=== PATIENT | female | born 1985 | race African-American/Black ===

== ENCOUNTER 2020-05-28 14:25 | Emergency (ER) | payer MEDICAID, OTHER ==
[2020-05-28] MEDS ORDERED: Fluconazole 150 MG Tab PO ONE (14:49)
--- NOTE | 2020-05-28 15:02 | EDM.PDOC ---
ED HPI GENERAL MEDICAL PROBLEM - General Chief Complaint: Skin Complaint Stated Complaint: PAIN FIBROIDS Time Seen by Provider: 05/28/20 14:36 - History of Present Illness INITIAL COMMENTS - FREE TEXT/NARRATIVE: CHIEF COMPLAINT(S): Rash HISTORY OF PRESENT ILLNESS: This is a 34-year-old female with a past medical history of ablation for fibroids approximately 2 months ago who presents to the emergency department with a chief complaint of rash. Patient states that after her ablation for fibroids 2 months ago she wore a pad for approximately 1 month given the concern for spotting. She states that she took it off approximately a month ago and then she experienced her. Approximately 2 weeks ago and has had a pad on during that time. She states that she noticed today that after sexual intercourse the skin around her vagina and during sex she experienced some pain and noticed a rash. She describes the rash as dry and the pain as a burning. She rates the pain as 4 out of 10. She denies any vaginal bleeding or vaginal discharge. She denies any radiation of this pain. She states that she has never had this before. She denies any aggravating or relieving symptoms. REVIEW OF SYSTEMS: Constitutional: Denies fever, chills. Eyes: Denies eye pain Ears, Nose, Mouth, & Throat: Denies earache Cardiovascular: Denies chest pain Respiratory: Denies shortness of breath Gastrointestinal: Denies Nausea, vomiting, diarrhea, hematochezia. Genitourinary: Positive for vaginal itching. Denies vaginal bleeding or vaginal discharge Skin: Positive for rash around vagina Neurological: Denies blurred vision Psychiatric: Denies depression PAST MEDICAL HISTORY: As per history of present illness and as reviewed below otherwise noncontributory. SURGICAL HISTORY: As per history of present illness and as reviewed below otherwise noncontributory. LMP: 2 weeks ago. SOCIAL HISTORY: As per history of present illness and as reviewed below otherwise noncontributory. FAMILY HISTORY: As per history of present illness and as reviewed below otherwise noncontributory. EXAMINATION OF ORGAN SYSTEMS/BODY AREAS: Constitutional: Heart rate was 87, blood pressure 116/69. Respiratory rate 18 with an oxygen saturation of 97% on room air. Temperature 36.6 General: [Overall well-appearing woman who is in no acute distress Psychiatric: Appropriate mood and affect. Eyes: No scleral icterus or conjunctival erythema ENMT: Moist mucous membranes. No pharyngeal erythema Cardiovascular: Regular, rate, and rhythm. No gallops, murmurs, or rubs. Respiratory: Lungs clear to auscultation bilaterally. No wheezes, rales, or rhonchi. Gastrointestinal: Soft, non-tender, non-distended. Normoactive bowel sounds Genitourinary: No suprapubic tenderness pelvic examination was performed with RN risk control product liability director in presence. The patient has normal female external genitalia without any lesions. There was no obvious rash to the external genitalia however there was obvious Conchita infection. Musculoskeletal: Normal range of motion. Skin: No lesions or abrasions. Neurological: Alert, GCS 15 MEDICAL DECISION MAKING AND COURSE IN THE ED WITH INTERPRETATION/REVIEW OF DIAGNOSTIC STUDIES: This is a 34-year-old woman with a past medical history of fibroid uterus status post ablation who comes to the emergency department with vaginal itching, irritation, and burning with an examination revealing yeast vaginitis. At this time the patient is stable and I do not believe any labs or imaging are indicated. I discussed with the patient that I be providing her with fluconazole here and that to be providing her with an additional tablet at home to take if the symptoms do not improve within the next 3 days. Also discussed with her that she can use [id number] Monistat or other creams to help with the itching. She is to return to the emergency department for any new or worsening symptoms. She was amenable to discharge at this time and had no further questions. DISPOSITION: The patient was discharged home in stable condition. The patient will follow up with PCP as needed CONDITION: Fair PROCEDURES: None FINAL IMPRESSION(S)/DIAGNOSES: 1. Acute yeast vaginitis Siddhartha Zuluaga M.D. - Related Data Allergies Allergy/AdvReac Type Severity Reaction Status Date / Time No Known Allergies Allergy Verified 05/28/20 14:33 Home Meds: Home Meds Fluconazole [Diflucan] 150 mg PO ONETIME #1 tab 05/28/20 [Rx] Past Medical History Other HEENT History: seasonal allergies [employer]ER [employer] RET[employer]IST History: Reports: Endometrial Ablation, Other CON[employer]ER [employer]IST History: - Infectious Disease History Infectious Disease History: Reports: Chicken Pox Social & Family History - Family History Family Medical History: No Pertinent Family History - Caffeine Use Caffeine Use: Reports: Coffee - Recreational Drug Use Recreational Drug Use: No ED ROS GENERAL - Review of Systems Review Of Systems: See Below ED EXAM, SKIN/RASH Exam: See Below Course - Vital Signs Last Recorded V/S: Last Vital Signs Temp 36.4 C 05/28/20 15:15 Pulse 81 05/28/20 15:15 Resp 16 05/28/20 15:15 BP 120/84 05/28/20 15:15 Pulse Ox 98 05/28/20 15:15 - Orders/Labs/Meds Meds: Medications Discontinued Medications Generic Name Dose Route Start Last Admin Trade Name Kings PRN Reason Stop Dose Admin Fluconazole 150 mg 05/28/20 14:49 05/28/20 14:58 Diflucan PO 05/28/20 14:50 150 mg ONETIME ONE Administration Departure - Departure Time of Disposition: 15:01 Disposition: Home, Self-Care 01 Condition: Fair Clinical Impression: Yeast infection involving the vagina and surrounding area - Discharge Information *PRESCRIPTION DRUG MONITORING PROGRAM REVIEWED*: No *COPY OF PRESCRIPTION DRUG MONITORING REPORT IN PATIENT LIZBET: No Prescriptions: Fluconazole [Diflucan] 150 mg PO ONETIME #1 tab Instructions: Vaginal Yeast Infection, Adult Referrals: PCP,None [Ordering Only Provider] - Forms: ED Department Discharge Additional Instructions: The patient is informed of any results of their evaluation and diagnostic workup and all questions are answered. They are given discharge instructions and return precautions. The patient is stable for discharge. The patient states they understand and agree with the plan and that they will return if their symptoms get worse or if they have any new concerns. The following information is given to patients seen in the emergency department who are being discharged to home. This information is to outline your options for follow-up care. We provide all patients seen in our emergency department with a follow-up referral. The need for follow-up, as well as the timing and circumstances, are variable depending upon the specifics of your emergency department visit. If you don't have a primary care physician on staff, we will provide you with a referral. We always advise you to contact your personal physician following an emergency department visit to inform them of the circumstance of the visit and for follow-up with them and/or the need for any referrals to a consulting specialist. The emergency department will also refer you to a specialist when appropriate. This referral assures that you have the opportunity for follow-up care with a specialist. All of these measure are taken in an effort to provide you with optimal care, which includes your follow-up. Under all circumstances we always encourage you to contact your private physician who remains a resource for coordinating your care. When calling for follow-up care, please make the office aware that this follow-up is from your recent emergency room visit. If for any reason you are refused follow-up, please contact the [facility] Emergency Department at and asked to speak to the emergency department charge nurse. Your evaluated today on an emergent basis. I do believe your symptoms are secondary to yeast vaginitis. We did provide you with fluconazole here in the emergency department. If you have continued symptoms on 06/01/2020 please take an additional tablet of fluconazole which was sent to the pharmacy. [id number] you can obtain Monistat to help with the itching. Please return to the emergency department for any new or worsening symptoms. Please follow-up with gynecology as needed. [facility] [address] [place] [address] [facility] [address] [place] [id number] [facility] [address] [place] [id number] [facility] [address] [place] [id number] Sepsis Event Note (ED) - Evaluation Sepsis Screening Result: No Definite Risk - Focused Exam Vital Signs: Vital Signs Temp Pulse Resp BP Pulse Ox 05/28/20 15:15 36.4 C 81 16 120/84 98 05/28/20 14:38 36.6 C 87 18 116/69 97
== END 2020-05-28 15:16 | disposition home or self-care (01) ==
LOC: EDBD 14:25 → MW.ED 14:25
DX: B37.3 Candidiasis of vulva and vagina (principal)
CPT/HCPCS: 99283; A9270

== ENCOUNTER 2020-08-22 12:45 | Emergency (ER) | payer SELFPAY ==
[2020-08-22] MEDS ORDERED: Sodium Chloride 0.9% 10 ML Syringe FLUSH PRN (13:34)
[2020-08-22] MEDS ORDERED: Sodium Chloride 0.9% 2.5 ML Syringe FLUSH PRN (13:34)
--- NOTE | 2020-08-22 13:51 | EDM.PDOC ---
ED HPI GENERAL MEDICAL PROBLEM - General Chief Complaint: Respiratory Problem Stated Complaint: SOB Time Seen by Provider: 08/22/20 12:46 "lungs" Pain Score (Numeric/FACES): 8 - Related Data Allergies Allergy/AdvReac Type Severity Reaction Status Date / Time No Known Allergies Allergy Verified 08/22/20 13:09 Home Meds: Home Meds Albuterol Sulfate [Proair Hfa] 8.5 gm IH Q8HR PRN #1 hfa.[email or web address] 08/22/20 [Rx] Albuterol [Proventil Neb Soln] 1 ampule NEB Q6H PRN #1 box 08/22/20 [Rx] predniSONE [Prednisone] 20 mg PO DAILY 5 Days #5 tablet 08/22/20 [Rx] Past Medical History - Past Health History Medical/Surgical History: Denies Medical/Surgical History Other HEENT History: seasonal allergies CHHA History: Reports: Endometrial Ablation, Other CHHA History: - Infectious Disease History Infectious Disease History: Reports: Chicken Pox Social & Family History - Family History Family Medical History: No Pertinent Family History - Tobacco Use Tobacco Use Status *Q: Never Tobacco User Second Hand Smoke Exposure: No - Caffeine Use Caffeine Use: Reports: Tea - Recreational Drug Use Recreational Drug Use: No Course - Vital Signs Last Recorded V/S: Last Vital Signs Temp 36.8 C 08/22/20 13:07 Pulse 78 08/22/20 15:19 Resp 16 08/22/20 13:07 BP 111/71 08/22/20 15:19 Pulse Ox 95 08/22/20 15:19 - Orders/Labs/Meds Labs: Laboratory Tests 08/22/20 08/22/20 08/22/20 Range/Units 13:47 13:47 13:47 WBC 6.96 (4.0-11.0) K/uL RBC 5.45 (4.30-5.90) M/uL Hgb 15.3 (12.0-16.0) g/dL Hct 45.9 (36.0-46.0) % MCV 84.2 (80.0-98.0) fL MCH 28.1 (27.0-32.0) pg MCHC 33.3 (31.0-37.0) g/dL RDW Std Deviation 38.1 (28.0-62.0) fl RDW Coeff of Hesham 13 (11.0-15.0) % Plt Count 218 (150-400) K/uL MPV 11.80 (7.40-12.00) fL Neut % (Auto) 54.3 (48.0-80.0) % Lymph % (Auto) 29.3 (16.0-40.0) % [place] % (Auto) 5.5 (0.0-15.0) % Eos % (Auto) 10.5 H (0.0-7.0) % Baso % (Auto) 0.4 (0.0-1.5) % Neut # (Auto) 3.8 (1.4-5.7) K/uL Lymph # (Auto) 2.0 (0.6-2.4) K/uL [place] # (Auto) 0.4 (0.0-0.8) K/uL Eos # (Auto) 0.7 (0.0-0.7) K/uL Baso # (Auto) 0.0 (0.0-0.1) K/uL Nucleated RBC % 0.0 /100WBC Nucleated RBCs # 0 K/uL Sodium 138 (136-145) mmol/L Potassium 3.6 (3.5-5.1) mmol/L Chloride 104 (98-107) mmol/L Carbon Dioxide 28.6 (21.0-32.0) mmol/L BUN 10 (7.0-18.0) mg/dL Creatinine 1.1 H (0.6-1.0) mg/dL Est Cr Clr Drug Dosing 57.00 mL/min Estimated GFR (MDRD) > 60.0 ml/min Glucose 75 (74-106) mg/dL Calcium 8.9 (8.5-10.1) mg/dL Total Bilirubin 0.9 (0.2-1.0) mg/dL AST 20 (15-37) IU/L ALT 16 (14-63) IU/L Alkaline Phosphatase 50 (46-116) U/L Troponin I (0.000-0.056) ng/mL B-Natriuretic Peptide 5 (<100) PG/ML Total Protein 7.7 (6.4-8.2) g/dL Albumin 3.6 (3.4-5.0) g/dL Globulin 4.1 H (2.6-4.0) g/dL Albumin/Globulin Ratio 0.9 (0.9-1.6) HCG, Quant < 1.0 mIU/mL 08/22/20 Range/Units 13:47 WBC (4.0-11.0) K/uL RBC (4.30-5.90) M/uL Hgb (12.0-16.0) g/dL Hct (36.0-46.0) % MCV (80.0-98.0) fL MCH (27.0-32.0) pg MCHC (31.0-37.0) g/dL RDW Std Deviation (28.0-62.0) fl RDW Coeff of Hesham (11.0-15.0) % Plt Count (150-400) K/uL MPV (7.40-12.00) fL Neut % (Auto) (48.0-80.0) % Lymph % (Auto) (16.0-40.0) % [place] % (Auto) (0.0-15.0) % Eos % (Auto) (0.0-7.0) % Baso % (Auto) (0.0-1.5) % Neut # (Auto) (1.4-5.7) K/uL Lymph # (Auto) (0.6-2.4) K/uL [place] # (Auto) (0.0-0.8) K/uL Eos # (Auto) (0.0-0.7) K/uL Baso # (Auto) (0.0-0.1) K/uL Nucleated RBC % /100WBC Nucleated RBCs # K/uL Sodium (136-145) mmol/L Potassium (3.5-5.1) mmol/L Chloride (98-107) mmol/L Carbon Dioxide (21.0-32.0) mmol/L BUN (7.0-18.0) mg/dL Creatinine (0.6-1.0) mg/dL Est Cr Clr Drug Dosing mL/min Estimated GFR (MDRD) ml/min Glucose (74-106) mg/dL Calcium (8.5-10.1) mg/dL Total Bilirubin (0.2-1.0) mg/dL AST (15-37) IU/L ALT (14-63) IU/L Alkaline Phosphatase (46-116) U/L Troponin I < 0.050 (0.000-0.056) ng/mL B-Natriuretic Peptide (<100) PG/ML Total Protein (6.4-8.2) g/dL Albumin (3.4-5.0) g/dL Globulin (2.6-4.0) g/dL Albumin/Globulin Ratio (0.9-1.6) HCG, Quant mIU/mL Meds: Medications Discontinued Medications Generic Name Dose Route Start Last Admin Trade Name Freq PRN Reason Stop Dose Admin Methylprednisolone Sodium Succinate 125 mg 08/22/20 14:37 08/22/20 15:01 Methylprednisolone Sodium Succinate 125 Mg/2 Ml Sdv IVPUSH 08/22/20 14:38 125 mg ONETIME ONE Administration Sodium Chloride 10 ml 08/22/20 13:34 08/22/20 15:02 Sodium Chloride 0.9% 10 Ml Syringe FLUSH 10 ml ASDIRECTED PRN Administration Keep Vein Open Sodium Chloride 2.5 ml 08/22/20 13:34 08/22/20 15:02 Sodium Chloride 0.9% 2.5 Ml Syringe FLUSH 2.5 ml ASDIRECTED PRN Administration Keep Vein Open Departure - Departure Disposition: Home, Self-Care 01 Clinical Impression: Cough Dyspnea Qualifiers: Dyspnea type: unspecified Qualified Code(s): R06.00 - Dyspnea, unspecified - Discharge Information Prescriptions: predniSONE [Prednisone] 20 mg PO DAILY 5 Days #5 tablet Albuterol Sulfate [Proair Hfa] 8.5 gm IH Q8HR PRN #1 hfa.aer.ad PRN Reason: Cough Albuterol [Proventil Neb Soln] 1 ampule NEB Q6H PRN #1 box PRN Reason: Wheezing Instructions: Cough, Adult, [id number] Referrals: PCP,None [Primary Care Provider] - Forms: ED Department Discharge Additional Instructions: The following information is given to patients seen in the emergency department who are being discharged to home. This information is to outline your options for follow-up care. We provide all patients seen in our emergency department with a follow-up referral. The need for follow-up, as well as the timing and circumstances, are variable depending upon the specifics of your emergency department visit. If you don't have a primary care physician on staff, we will provide you with a referral. We always advise you to contact your personal physician following an emergency department visit to inform them of the circumstance of the visit and for follow-up with them and/or the need for any referrals to a consulting specialist. The emergency department will also refer you to a specialist when appropriate. This referral assures that you have the opportunity for follow-up care with a specialist. All of these measure are taken in an effort to provide you with optimal care, which includes your follow-up. Under all circumstances we always encourage you to contact your private physician who remains a resource for coordinating your care. When calling for follow-up care, please make the office aware that this follow-up is from your recent emergency room visit. If for any reason you are refused follow-up, please contact the [facility] Emergency Department at and asked to speak to the emergency department charge nurse. [facility] [address] [place] [id number] [facility] [address] [place] [id number] 1. Take your medications as prescribed. 2. You can take Benadryl as needed for symptomatic relief. 3. Establish care and follow-up with a primary care provider as discussed. Return to ED as as needed and as discussed. Sepsis Event Note (ED) - Evaluation Sepsis Screening Result: No Definite Risk
--- NOTE | 2020-08-22 13:52 | PCM.SN.2 ---
- Free Text/Narrative Note: EG normal sinus rhythm heart rate 74 MD 168 [place] [address]RS [address] and T no prior for comparison impression no acute injury
--- NOTE | 2020-08-22 14:24 | CR ---
INDICATION: pain sob TECHNIQUE: Chest 2 views. COMPARISON: None. FINDINGS: Cardiovascular and mediastinum: Heart size and vasculature are normal in caliber and appearance. Mediastinum is within normal limits. Lungs and pleural spaces: Lungs are clear. No sign of infiltrate or mass. No sign of pleural effusion. No pneumothorax. Bones and soft tissues: No significant findings. IMPRESSION: Unremarkable chest. Dictated by: Chalo Mondragon MD @ 08/22/2020 14:24:10 (Electronically Signed)
--- NOTE | 2020-08-22 14:31 | EDM.PDOC ---
ED HPI GENERAL MEDICAL PROBLEM - General Chief Complaint: Respiratory Problem Stated Complaint: SOB Time Seen by Provider: 08/22/20 12:46 Source of Information: Reports: Patient History Limitations: Reports: No Limitations - History of Present Illness INITIAL COMMENTS - FREE TEXT/NARRATIVE: HISTORY AND PHYSICAL: History of present illness: Patient is a 34-year-old female presenting to the ED for shortness of breath x 6 months; worse the past 2 weeks Patient states that she went to a doctor in [place] from where she recently moved, and her doctor told her that she had acute bronchitis and treated her with nebulized albuterol and sent her home with an albuterol inhaler 6 months ago. Patient states she also has been coughing which is worse at night. She states the albuterol helps for a short period of time with her symptoms. Patient states she has a family history of asthma and eczema but she has never had issues with this. Patient denies fever or chills. Denies headache, neck stiff ness, change in vision, syncope, or near syncope. Denies nausea, vomiting, abdominal pain, diarrhea, constipation, or dysuria. Has not noted any blood in urine or stool. Patient has been eating and drinking appropriately. Review of systems: As per history of present illness and below otherwise all systems reviewed and negative. Past medical history: As per history of present illness and as reviewed below otherwise noncontributory. Surgical history: As per history of present illness and as reviewed below otherwise noncontributory. Social history: See social history for further information Family history: As per history of present illness and as reviewed below otherwise noncontributory. Physical exam: General: Patient is alert, oriented, and in no acute distress. Patient sitting comfortably on exam table. Vitals stable and reviewed by me HEENT: Atraumatic, normocephalic, pupils equal and reactive bilaterally, negative for conjunctival pallor or scleral icterus, mucous membranes moist, TMs normal bilaterally, throat clear, neck supple, nontender, trachea midline. No drooling or trismus noted. No meningeal signs. No hot potato voice noted. Lungs: Light end inspiratory and expiratory wheezing heard in the base of the right lung. Light inspiratory and expiratory wheezing heard in the anterior portion of the left lung. Otherwise, clear to auscultation, breath sounds equal bilaterally, chest nontender. Heart: S1S2, regular rate and rhythm without overt murmur Abdomen: Soft, nondistended, nontender. Negative for masses or hepatosplenomegaly. Negative for costovertebral tenderness. Pelvis: Stable nontender. Genitourinary: Deferred. Rectal: Deferred. Skin: Intact, warm, dry. No lesions or rashes noted. Extremities: Atraumatic, negative for cords or calf pain. Neurovascular unremarkable. Neuro: Awake, alert, oriented. Cranial nerves II through XII unremarkable. Cerebellum unremarkable. Motor and sensory unremarkable throughout. Exam nonfocal. Notes: On initial exam, patient is well-appearing, vitally stable, and in no acute distress. She is breathing comfortably without any accessory muscle use. Will obtain routine lab work including two-view chest x-ray, EKG. Upon reevaluation of patient, she remains comfortable and vitally stable in the emergency room. She does have some eosinophilia on lab work and I do suspect her symptoms may possibly reactive airway. Discussed importance for establishing care with a primary care provider. Strict return precautions thoroughly discussed with patient. Discussed importance for follow-up with a primary care provider. Voices understanding and is agreeable to plan of care. Denies any further questions or concerns at this time. Diagnostics: CBC, CMP, beta hCG quant, BNP, CXR 2 view, EKG Therapeutics: Solu-Medrol Prescription: Albuterol inhaler / neb, prednisone Impression: Dyspnea, possible reactive airway disease Cough Plan: 1. Take medications as prescribed. 2. You can take Benadryl as needed for symptomatic relief. 3. Establish care and follow-up with a primary care provider as discussed. Return to ED as as needed and as discussed. Definitive disposition and diagnosis as appropriate pending reevaluation and review of above. "lungs" Pain Score (Numeric/FACES): 8 - Related Data Allergies Allergy/AdvReac Type Severity Reaction Status Date / Time No Known Allergies Allergy Verified 08/22/20 13:09 Home Meds: Home Meds Albuterol Sulfate [Proair Hfa] 8.5 gm IH Q8HR PRN #1 hfa.aer.ad 08/22/20 [Rx] Albuterol [Proventil Neb Soln] 1 ampule NEB Q6H PRN #1 box 08/22/20 [Rx] predniSONE [Prednisone] 20 mg PO DAILY 5 Days #5 tablet 08/22/20 [Rx] Past Medical History - Past Health History Medical/Surgical History: Denies Medical/Surgical History Other HEENT History: seasonal allergies DISTRICT DIRECTOR History: Reports: Endometrial Ablation, Other DISTRICT DIRECTOR History: - Infectious Disease History Infectious Disease History: Reports: Chicken Pox Social & Family History - Family History Family Medical History: No Pertinent Family History - Tobacco Use Tobacco Use Status *Q: Never Tobacco User Second Hand Smoke Exposure: No - Caffeine Use Caffeine Use: Reports: Tea - Recreational Drug Use Recreational Drug Use: No ED ROS GENERAL - Review of Systems Review Of Systems: Comprehensive ROS is negative, except as noted in HPI. ED EXAM, GENERAL - Physical Exam Exam: See Below (see dictation) Course - Vital Signs Last Recorded V/S: Last Vital Signs Temp 98.2 F 08/22/20 13:07 Pulse 78 08/22/20 13:07 Resp 16 08/22/20 13:07 BP 109/68 08/22/20 13:07 Pulse Ox 95 08/22/20 13:07 - Orders/Labs/Meds Orders: Active Orders 24 hr Category Date Time Status EKG Documentation Completion [RC] STAT Care 08/22/20 13:34 Active Sodium Chloride 0.9% [Saline Flush] Med 08/22/20 13:34 Active 10 ml FLUSH ASDIRECTED PRN Sodium Chloride 0.9% [Saline Flush] Med 08/22/20 13:34 Active 2.5 ml FLUSH ASDIRECTED PRN Saline Lock Insert [OM.PC] Stat Oth 08/22/20 13:35 Ordered Labs: Laboratory Tests 08/22/20 08/22/20 08/22/20 Range/Units 13:47 13:47 13:47 WBC 6.96 (4.0-11.0) K/uL RBC 5.45 (4.30-5.90) M/uL Hgb 15.3 (12.0-16.0) g/dL Hct 45.9 (36.0-46.0) % MCV 84.2 (80.0-98.0) fL MCH 28.1 (27.0-32.0) pg MCHC 33.3 (31.0-37.0) g/dL RDW Std Deviation 38.1 (28.0-62.0) fl RDW Coeff of Hesham 13 (11.0-15.0) % Plt Count 218 (150-400) K/uL MPV 11.80 (7.40-12.00) fL Neut % (Auto) 54.3 (48.0-80.0) % Lymph % (Auto) 29.3 (16.0-40.0) % Lamb % (Auto) 5.5 (0.0-15.0) % Eos % (Auto) 10.5 H (0.0-7.0) % Baso % (Auto) 0.4 (0.0-1.5) % Neut # (Auto) 3.8 (1.4-5.7) K/uL Lymph # (Auto) 2.0 (0.6-2.4) K/uL Lamb # (Auto) 0.4 (0.0-0.8) K/uL Eos # (Auto) 0.7 (0.0-0.7) K/uL Baso # (Auto) 0.0 (0.0-0.1) K/uL Nucleated RBC % 0.0 /100WBC Nucleated RBCs # 0 K/uL Sodium 138 (136-145) mmol/L Potassium 3.6 (3.5-5.1) mmol/L Chloride 104 (98-107) mmol/L Carbon Dioxide 28.6 (21.0-32.0) mmol/L BUN 10 (7.0-18.0) mg/dL Creatinine 1.1 H (0.6-1.0) mg/dL Est Cr Clr Drug Dosing 57.00 mL/min Estimated GFR (MDRD) > 60.0 ml/min Glucose 75 (74-106) mg/dL Calcium 8.9 (8.5-10.1) mg/dL Total Bilirubin 0.9 (0.2-1.0) mg/dL AST 20 (15-37) IU/L ALT 16 (14-63) IU/L Alkaline Phosphatase 50 (46-116) U/L Troponin I (0.000-0.056) ng/mL B-Natriuretic Peptide 5 (<100) PG/ML Total Protein 7.7 (6.4-8.2) g/dL Albumin 3.6 (3.4-5.0) g/dL Globulin 4.1 H (2.6-4.0) g/dL Albumin/Globulin Ratio 0.9 (0.9-1.6) HCG, Quant < 1.0 mIU/mL 08/22/20 Range/Units 13:47 WBC (4.0-11.0) K/uL RBC (4.30-5.90) M/uL Hgb (12.0-16.0) g/dL Hct (36.0-46.0) % MCV (80.0-98.0) fL MCH (27.0-32.0) pg MCHC (31.0-37.0) g/dL RDW Std Deviation (28.0-62.0) fl RDW Coeff of Hesham (11.0-15.0) % Plt Count (150-400) K/uL MPV (7.40-12.00) fL Neut % (Auto) (48.0-80.0) % Lymph % (Auto) (16.0-40.0) % Lamb % (Auto) (0.0-15.0) % Eos % (Auto) (0.0-7.0) % Baso % (Auto) (0.0-1.5) % Neut # (Auto) (1.4-5.7) K/uL Lymph # (Auto) (0.6-2.4) K/uL Lamb # (Auto) (0.0-0.8) K/uL Eos # (Auto) (0.0-0.7) K/uL Baso # (Auto) (0.0-0.1) K/uL Nucleated RBC % /100WBC Nucleated RBCs # K/uL Sodium (136-145) mmol/L Potassium (3.5-5.1) mmol/L Chloride (98-107) mmol/L Carbon Dioxide (21.0-32.0) mmol/L BUN (7.0-18.0) mg/dL Creatinine (0.6-1.0) mg/dL Est Cr Clr Drug Dosing mL/min Estimated GFR (MDRD) ml/min Glucose (74-106) mg/dL Calcium (8.5-10.1) mg/dL Total Bilirubin (0.2-1.0) mg/dL AST (15-37) IU/L ALT (14-63) IU/L Alkaline Phosphatase (46-116) U/L Troponin I < 0.050 (0.000-0.056) ng/mL B-Natriuretic Peptide (<100) PG/ML Total Protein (6.4-8.2) g/dL Albumin (3.4-5.0) g/dL Globulin (2.6-4.0) g/dL Albumin/Globulin Ratio (0.9-1.6) HCG, Quant mIU/mL Departure - Departure Time of Disposition: 14:54 Disposition: Home, Self-Care 01 Condition: Good Clinical Impression: Cough Dyspnea Qualifiers: Dyspnea type: unspecified Qualified Code(s): R06.00 - Dyspnea, unspecified - Discharge Information Prescriptions: predniSONE [Prednisone] 20 mg PO DAILY 5 Days #5 tablet Albuterol Sulfate [Proair Hfa] 8.5 gm IH Q8HR PRN #1 hfa.aer.ad PRN Reason: Cough Albuterol [Proventil Neb Soln] 1 ampule NEB Q6H PRN #1 box PRN Reason: Wheezing Instructions: Cough, Adult, [id number] Referrals: PCP,None [Primary Care Provider] - Forms: ED Department Discharge Additional Instructions: The following information is given to patients seen in the emergency department who are being discharged to home. This information is to outline your options for follow-up care. We provide all patients seen in our emergency department with a follow-up referral. The need for follow-up, as well as the timing and circumstances, are variable depending upon the specifics of your emergency department visit. If you don't have a primary care physician on staff, we will provide you with a referral. We always advise you to contact your personal physician following an emergency department visit to inform them of the circumstance of the visit and for follow-up with them and/or the need for any referrals to a consulting specialist. The emergency department will also refer you to a specialist when appropriate. This referral assures that you have the opportunity for follow-up care with a specialist. All of these measure are taken in an effort to provide you with optimal care, which includes your follow-up. Under all circumstances we always encourage you to contact your private physic enrique who remains a resource for coordinating your care. When calling for follow- up care, please make the office aware that this follow-up is from your recent emergency room visit. If for any reason you are refused follow-up, please contact the [facility] at and asked to speak to the emergency department charge nurse. [facility] [address] [place] [address] [facility] [address] [place] [id number] 1. Take your medications as prescribed. 2. You can take Benadryl as needed for symptomatic relief. 3. Establish care and follow-up with a primary care provider as discussed. Return to ED as as needed and as discussed. Sepsis Event Note (ED) - Evaluation Sepsis Screening Result: No Definite Risk - Focused Exam Vital Signs: Vital Signs Temp Pulse Resp BP Pulse Ox 08/22/20 13:07 98.2 F 78 16 109/68 95 - My Orders Last 24 Hours: My Active Orders 08/22/20 13:34 EKG Documentation Completion [RC] STAT Sodium Chloride 0.9% [Saline Flush] 10 ml FLUSH ASDIRECTED PRN Sodium Chloride 0.9% [Saline Flush] 2.5 ml FLUSH ASDIRECTED PRN 08/22/20 13:35 Saline Lock Insert [OM.PC] Stat - Assessment/Plan Last 24 Hours: My Active Orders 08/22/20 13:34 EKG Documentation Completion [RC] STAT Sodium Chloride 0.9% [Saline Flush] 10 ml FLUSH ASDIRECTED PRN Sodium Chloride 0.9% [Saline Flush] 2.5 ml FLUSH ASDIRECTED PRN 08/22/20 13:35 Saline Lock Insert [OM.PC] Stat
[2020-08-22 14:33] LABS: BLOOD UREA NITROGEN,BUN 10 mg/dL (7.0-18.0); CARBON DIOXIDE,CO2 28.6 mmol/L (21.0-32.0); CHLORIDE,CL 104 mmol/L (98-107); GLUCOSE RANDOM 75 mg/dL (74-106); POTASSIUM,K 3.6 mmol/L (3.5-5.1); SODIUM,NA 138 mmol/L (136-145)
[2020-08-22] MEDS ORDERED: methylPREDNISolone Sodium Succinate 125 MG/2 ML SDV IVPUSH ONE (14:37)
== END 2020-08-22 15:17 | disposition home or self-care (01) ==
LOC: MW.ED 12:45
DX: R06.00 Dyspnea, unspecified (principal); R05 Cough
CPT/HCPCS: 36415; 71046; 80053; 83880; 84484; 84702; 85025; 93005; 96374; 99285; J2930; 93010; 99283